=== PATIENT | female | born 1965 | race African-American/Black ===

== ENCOUNTER 2016-12-20 18:41 | Emergency (ER) | payer BC ==
[~2016-12-20] VITALS: Ht 157.5 cm; Wt 64.0 kg
[~2016-12-20 18:41] MED LIST: CARI350T PO; CHOL100062 PO; FERR28TA PO; GABA300C16 PO; GLIM4TAB PO; LANT3I SC; MTF1000T PO; SIMV40TA3 PO; TRAM50TA2 PO; ZOLP5TAB PO
[2016-12-20 18:46] VITALS: Ht 157.5 cm; Wt 64.0 kg
[2016-12-20] MEDS ORDERED: DIAZEPAM 5 MG TAB PO STA (20:55)
[2016-12-20] MEDS ORDERED: CYCL-319 PO (21:30)
[2016-12-20] MEDS ORDERED: IBUP400T22 PO (21:30)
--- NOTE | 2016-12-21 01:28 | ERD ---
ER Documentation Chief Complaint Date/Time DATE: 12/21/16 TIME: 01:26 Chief Complaint right neck pain, radiating to right arm and leg. HPI This is a 51-year-old female presenting to the emergency department complaining of right neck pain, shoulder that radiates down her lumbar back. Patient states the rate pain is 5 out of 10 and increased with movement. She states that she has an aspirin without any relief. Patient denies any shortness of breath or chest pain. ROS All systems reviewed and are negative except as per history of present illness. Medications Home Meds Active Scripts Ibuprofen* (Ibuprofen*) 400 Mg Tablet, 400 MG PO Q6H Y for PAIN, #30 TAB Prov:DION BRICE PA-C 12/20/16 Cyclobenzaprine Hcl* (Cyclobenzaprine Hcl*) 10 Mg Tablet, 10 MG PO TID, #15 TAB Prov:DION BRICE PA-C 12/20/16 Insulin Glargine* (Lantus*) 100 Unit/Ml Soln, 50 UNIT SC BID, #1 VIAL Prov:JESSICA WYLIE DO 08/26/15 Reported Medications Zolpidem Tartrate* (Ambien*) 5 Mg Tablet, 5 MG PO HS Y for INSOMNIA, TAB 07/17/14 Cholecalciferol* (Vitamin D3*) 1,000 Unit Tablet, 1000 UNIT PO DAILY, TAB 07/17/14 Simvastatin (Simvastatin) 40 Mg Tablet, 40 MG PO HS, TAB 07/17/14 Insulin Glargine* (Lantus*) 100 Unit/Ml Soln, 50 UNIT SC BID, EA 03/25/14 Carisoprodol* (Soma*) 350 Mg Tablet, 350 MG PO TID, TAB 03/25/14 Glimepiride* (Glimepiride*) 4 Mg Tablet, 4 MG PO BID, TAB 03/25/14 Tramadol HCl (Tramadol HCl) 50 Mg Tab, 50 MG PO DAILY Y for SEVERE PAIN LEVEL 7- 10, TAB 03/25/14 Metformin* (Glucophage*) 1,000 Mg Tablet, 1000 MG PO BID, TAB 03/25/14 Gabapentin* (Gabapentin*) 300 Mg Capsule, 300 MG PO TID Y for PAIN, CAP 03/25/14 Ferrous Sulfate (Ferrous Sulfate) 1 Tab Tablet, 1 TAB PO BID 07/28/11 Allergies Allergies: Coded Allergies: Penicillins (Verified Allergy, Intermediate, FACE SWELLING, 12/20/16) PMhx/Soc History of Surgery: Yes (PARATHYROID ADENOMA) Anesthesia Reaction: No Hx Neurological Disorder: No Hx Respiratory Disorders: No Hx Cardiac Disorders: Yes (HYPERLIPEDEMIA) Hx Psychiatric Problems: Yes (DEPRESSION/ ANXIETY) Hx Miscellaneous Medical Probl: Yes (DM) Hx Alcohol Use: No Hx Substance Use: No Hx Tobacco Use: No Smoking Status: Never smoker Physical Exam Vitals Vital Signs Date Time Temp Pulse Resp B/P Pulse Ox O2 Delivery O2 Flow Rate FiO2 12/20/16 18:46 98.2 84 18 152/79 98 Physical Exam GENERAL: WD/WN, in no apparent distress, non-toxic appearing HENT: NC/AT EYES: Conjunctiva normal NECK: Supple PULM: Normal labored breathing CV: Good capillary refill GI: Non-distended, no guarding BACK: no deformities noted, normal spinal curvature, TTP on lumbar region, TTP on right shoulder and trapezius EXT: No clubbing, cyanosis, or edema NEURO: Moves on all fours, sensation intact, normal gait SKIN: intact PSYCH: Normal mood Results 24 hrs Current Medications Medications (Trade) Dose Ordered Sig/Santino Route PRN Reason Start Time Stop Time Status Last Admin Dose Admin Diazepam (Valium) 10 mg ONCE STAT PO 12/20/16 20:55 12/20/16 20:56 DC 12/20/16 21:11 Procedures/MDM This is a 51-year-old female presenting to the emergency department complaining of right-sided neck pain, trapezius muscular pain and lumbar back pain for the past few days. On examination patient pain appears to be musculoskeletal and region. No evidence of fracture dislocation. No evidence of ACS. Patient has stable vital signs. Patient was given a muscle relaxer in the ED and prescription for outpatient. I discussed with her to follow-up with her primary care physician, discussed return the ER for worsening symptoms patient understands and agrees with plan Departure Diagnosis: Primary Impression: Neck pain Condition: Stable Patient Instructions: Neck Pain, No Trauma Additional Instructions: FOLLOW UP WITH YOUR PRIMARY CARE PHYSICIAN TOMORROW.Return to this facility if you are not improving as expected. Take all medicines as directed. Return to this facility if you are not improving as expected. DION BRICE PA-C Dec 21, 2016 01:28
== END 2016-12-20 21:51 | disposition home or self-care (01) ==
LOC: FTE 18:41
DX: M54.2 Cervicalgia (principal); E11.9 Type 2 diabetes mellitus without complications; Z79.4 Long term (current) use of insulin; Z79.84 Long term (current) use of oral hypoglycemic drugs
CPT/HCPCS: 99283